=== PATIENT | female | born 1985 | race Caucasian/White ===

== ENCOUNTER 2020-08-23 19:33 | Emergency (ER) | payer OTHER ==
[~2020-08-23] VITALS: Ht 160 cm; Wt 65.8 kg
[2020-08-23] MEDS ORDERED: GABA-534 PO (19:48)
[2020-08-23] MEDS ORDERED: LORA2TAB95 PO (19:48)
[2020-08-23] MEDS ORDERED: TRAZ150T75 PO (19:48)
[2020-08-23] MEDS ORDERED: QUET300T2 PO (19:48)
[2020-08-23] MEDS ORDERED: IBUP-23 PO (19:53)
--- NOTE | 2020-08-23 20:10 | NUR ---
Patient discharged to home in stable condition. Written and verbal after care instructions given. Patient verbalizes understanding of instructions. Stressed follow up or return to ER for worsening s/s.
== END 2020-08-23 20:13 | disposition home or self-care (01) ==
LOC: ER 19:36
DX: K08.89 Other specified disorders of teeth and supporting structures (principal); K05.10 Chronic gingivitis, plaque induced; Z41.1 Encounter for cosmetic surgery; F32.9 Major depressive disorder, single episode, unspecified; F17.200 Nicotine dependence, unspecified, uncomplicated; Z79.899 Other long term (current) drug therapy
CPT/HCPCS: A4663

== ENCOUNTER 2021-05-21 13:48 | Emergency (ER) | payer OTHER ==
[~2021-05-21] VITALS: Ht 160 cm; Wt 72.6 kg
[~2021-05-21 13:48] MED LIST: GABA-534 PO; IBUP-23 PO; LORA2TAB95 PO; QUET300T2 PO; TRAZ150T75 PO
[2021-05-21] MEDS ORDERED: HYDR-4209 PO ×2 (14:10→14:46)
--- NOTE | 2021-05-21 14:18 | NUR ---
[email or web address], medical screening exam in progress
[2021-05-21] MEDS ORDERED: AMOX500C2 PO (14:24)
[2021-05-21] MEDS ORDERED: DEXAMETHASONE SOD PHOSPHATE 4 MG INJ IM ONE (14:30)
[2021-05-21] MEDS ORDERED: DEXAMETHASONE SOD PHOSPHATE 4 MG INJ ONE (14:33)
[2021-05-21] MEDS ORDERED: HYDROCODONE/APAP 5-325MG TABLET PO ONE (14:45)
--- NOTE | 2021-05-21 14:50 | NUR ---
Patient discharged to home in stable condition. Took belongings with her, no signs of acute distress. Written and verbal after care instructions given. Patient verbalizes understanding of instructions. Stressed follow up or return to ER for worsening s/s.
[2021-05-21 14:52] VITALS: BP 120/88
[2021-05-21] MEDS ORDERED: HYDROCODONE/APAP 5-325MG TABLET ONE (14:52)
== END 2021-05-21 14:50 | disposition home or self-care (01) ==
LOC: ER 13:52
DX: J02.0 Streptococcal pharyngitis (principal); F17.200 Nicotine dependence, unspecified, uncomplicated; F32.9 Major depressive disorder, single episode, unspecified; F41.9 Anxiety disorder, unspecified; Z79.899 Other long term (current) drug therapy
CPT/HCPCS: 96372; 99283; J1100; A4663

== ENCOUNTER 2022-02-26 08:16 | Emergency (ER) | payer OTHER ==
[~2022-02-26] VITALS: Ht 160 cm; Wt 65.8 kg
[~2022-02-26 08:16] MED LIST changes: +AMOX500C2 PO; +HYDR-4209 PO; -LORA2TAB95 PO; -TRAZ150T75 PO
--- NOTE | 2022-02-26 08:28 | NUR ---
at bedside exam in progress.
[2022-02-26] MEDS ORDERED: PROPOFOL 200 MG/20 ML BOTTLE IV ONE ×2 (08:45→10:00)
--- NOTE | 2022-02-26 09:13 | NUR ---
at bedside to insert IV due to multiple fail attempts to establish a line.
[2022-02-26] MEDS ORDERED: PROPOFOL 200 MG/20 ML BOTTLE ONE (09:16)
--- NOTE | 2022-02-26 09:25 | NUR ---
TIme out performed with at bedside RT Eduar, 2 nurses present. Patient on cardic monitor, on NSR rate in the 70's-90's. sbp of 139/88. RR 21. sedative administered by Physician Emile. procedure completed at 0940 patient tolerated well fully AAOX4. and with c/of severe pain.
[2022-02-26] MEDS ORDERED: FENTANYL CITRATE 100 MCG/2 ML AMPUL ONE (09:36)
[2022-02-26] MEDS ORDERED: CLIN300C12 PO (09:45)
[2022-02-26] MEDS ORDERED: HYDR-4209 PO (09:55)
[2022-02-26] MEDS ORDERED: FENTANYL CITRATE 100 MCG/2 ML AMPUL IV ONE (10:00)
[2022-02-26] MEDS ORDERED: MORPHINE SULFATE 4 MG/1 ML DISP.SYRIN IV ONE (10:00)
[2022-02-26] MEDS ORDERED: MORPHINE SULFATE 4 MG/1 ML DISP.SYRIN ONE (10:01)
[2022-02-26 10:13] VITALS: BP 118/69
--- NOTE | 2022-02-26 10:14 | NUR ---
DCD instruction given to pt. who verbalized understanding. pt. left room ambulatory AAOX4 saturation 100% on room air, no distress.
== END 2022-02-26 11:03 | disposition home or self-care (01) ==
LOC: ER 08:16
DX: F17.200 Nicotine dependence, unspecified, uncomplicated (principal); Z98.82 Breast implant status; Z79.899 Other long term (current) drug therapy
CPT/HCPCS: 10061; 76882; 76937; 96374; 99152; 99285; J2270; J3010; A4663; G0500; J3490

== ENCOUNTER 2022-12-12 01:22 | Emergency (ER) | payer OTHER ==
[~2022-12-12 01:22] MED LIST changes: +CLIN300C12 PO
--- NOTE | 2022-12-12 01:40 | NUR ---
PATIENT WAS CALLED TO BE TRIAGED BUT STATED "I DON'T WANT TO BE SEEN ANYMORE." PATIENT WAS ENCOURAGE TO BE TRIAGED AND BE SEEN BY ERMD BUT REFUSED AND WALKED OUT OF ER WITH HER BOFRIEND. PATIENT WAS NOT TRIAGED OR SEEN BY ERMD.
== END 2022-12-12 01:50 | disposition left against medical advice (07) ==
LOC: ER 01:27
DX: Z53.21 Procedure and treatment not carried out due to patient leaving prior to being seen by health care provider (principal)

== ENCOUNTER 2024-06-14 10:19 | Emergency (ER) | payer OTHER ==
[~2024-06-14] VITALS: Ht 160 cm; Wt 65.8 kg
[2024-06-14 12:05] LABS: BASOPHILS % (AUTO) 0.7 % (0.0-2.0); EOSINOPHILS # (AUTO) 0.1 K/uL (0.0-0.7); EOSINOPHILS % (AUTO) 2.9 % (0.0-7.0); HEMATOCRIT 36.9 % (31.2-41.9); HEMOGLOBIN 11.8 g/dL (10.9-14.3); LYMPHOCYTES # (AUTO) 1.8 K/uL (0.8-4.8); LYMPHOCYTES % (AUTO) 39.3 % (20.5-51.5); MEAN CORPUSCULAR HEMOGLOBIN 29.1 uug (24.7-32.8); MEAN CORPUSCULAR HGB CONC 32 g/dL (32.3-35.6); MEAN CORPUSCULAR VOLUME 90.6 fL (75.5-95.3); MONOCYTES # (AUTO) 0.4 K/uL (0.1-1.30); MONOCYTES % (AUTO) 8.5 % (0.0-11.0); NEUTROPHILS # (AUTO) 2.2 K/uL (1.8-8.9); NEUTROPHILS % (AUTO) 48.6 % (38.5-71.5); PLATELET COUNT (AUTO) 284 K/uL (179-408); RED BLOOD CELL COUNT(AUTO) 4.07 MIL/uL (3.63-4.92); RED CELL DISTRIBUTION WIDTH 12.8 % (12.3-17.7); WHITE BLOOD COUNT (AUTO) 4.6 K/uL (3.8-11.8)
[2024-06-14 12:11] LABS: CALCIUM 8.9 mg/dL (8.5-10.1); CREATININE 0.6 mg/dL (0.6-1.3); POTASSIUM 3.7 mmol/L (3.5-5.1)
[2024-06-14] MEDS ORDERED: ACET1TAB23 PO (12:30)
[2024-06-14] MEDS ORDERED: METR70GE17 VG (12:30)
[2024-06-14] MEDS ORDERED: SULF1TAB48 PO (12:30)
[2024-06-14] MEDS ORDERED: BACITRACIN ZINC OINT 15 GM TUBE ONE (13:12)
[2024-06-14] MEDS: BACITRACIN ZINC OINT 15 GM TUBE TOP ONE (13:20)
[2024-06-14 13:23] VITALS: BP 136/69; TEMP 98.3; O2SAT 97
--- NOTE | 2024-06-14 13:24 | NUR ---
PT WAS EVALUATED BY DR LOPEZ. PT WAS D/C'D TO HOME. D/C INSTRUCTIONS GIVEN TO THE PT BY DR LOPEZ.
--- NOTE | 2024-06-14 13:48 | NUR ---
PT WAS D/C'd TO HOME. D/C INSTRUCTIONS GIVEN TO THE PT BY DR LOPEZ.
== END 2024-06-14 14:22 | disposition home or self-care (01) ==
LOC: ER 10:20
DX: L03.116 Cellulitis of left lower limb (principal); N76.0 Acute vaginitis; B96.89 Other specified bacterial agents as the cause of diseases classified elsewhere; F17.200 Nicotine dependence, unspecified, uncomplicated; Z98.890 Other specified postprocedural states; Z79.899 Other long term (current) drug therapy; Z79.1 Long term (current) use of non-steroidal anti-inflammatories (NSAID); Z79.891 Long term (current) use of opiate analgesic
CPT/HCPCS: 36415; 85025; A4606; A4663

== ENCOUNTER 2024-07-07 06:11 | Emergency (ER) | payer OTHER ==
[~2024-07-07] VITALS: Ht 160 cm; Wt 68.0 kg
[~2024-07-07 06:11] MED LIST changes: +ACET1TAB23 PO; +METR70GE17 VG; +SULF1TAB48 PO
[2024-07-07] MEDS ORDERED: KETOROLAC TROMETHAMINE 15 MG INJ ONE (07:22)
[2024-07-07] MEDS: KETOROLAC TROMETHAMINE 15 MG INJ IM ONE (07:25)
[2024-07-07 07:55] VITALS: O2SAT 96
[2024-07-07] MEDS ORDERED: NALO4SPR BNOSTRILS (08:23)
[2024-07-07] MEDS ORDERED: IBUP-1955 PO (08:23)
== END 2024-07-07 08:50 | disposition home or self-care (01) ==
LOC: ER 06:23
DX: B34.9 Viral infection, unspecified (principal); R51.9 Headache, unspecified; M79.10 Myalgia, unspecified site; Z79.1 Long term (current) use of non-steroidal anti-inflammatories (NSAID); Z79.891 Long term (current) use of opiate analgesic; Z98.890 Other specified postprocedural states; Z79.899 Other long term (current) drug therapy; Z59.00 Homelessness unspecified
CPT/HCPCS: 71045; 98960; A4606; A4663; J1885